=== PATIENT | female | born 1970 | race Hispanic/Latino ===

== ENCOUNTER 2023-08-30 09:48 | Outpatient (CLI) | payer OTHER | END 2023-08-30 09:49 | disposition home or self-care (01) | LOC: BICULT 09:48 → EDSEX 10:15 | PROVIDERS: ATTEND Nurse Practitioner Women's Health | DX: R10.2 Pelvic and perineal pain (principal); N88.8 Other specified noninflammatory disorders of cervix uteri | CPT/HCPCS: 76856 ==